=== PATIENT | female | born 1990 | race Asian ===

== ENCOUNTER → 2017-09-17 | Outpatient (CLI) | payer OTHER ==
--- NOTE | 2017-09-17 15:07 | MAMMOGRAPHY REPORT ---
ULTRASOUND OF RIGHT BREAST: 09/17/2017 CLINICAL HISTORY: 27-year-old woman presents with a 10 year history of feeling a lump in the lateral right breast, that she reported a prior physician told her it was a benign cyst and prescribed vitami n E. She presents with possible increased size and pain in the area of lump in the upper outer quadr ant of the right breast. COMPARISON: No prior exams were available for comparison. FINDINGS: The patient pointed out her area of lump in the 10:00 right breast, 9 cm from the nipple. On palpation, there is an ovoid 3 cm x 1 cm firm area versus ridge of tissue. On targeted ultrasound performed over this lump, there is sonographically normal dense glandular tissue, without evidence o f an underlying cyst or solid mass. No focal skin thickening or drainable fluid collection. IMPRESSION: ACR BI-RADS CATEGORY 2: BENIGN There is no sonographic evidence of malignancy, cyst or other suspicious abnormality in the area of l ump in the 10:00 right breast, pointed out by the patient. Therefore, continued clinical follow-up i s recommended, as biopsy of a clinically suspicious mass should not be precluded by negative imaging. These results and recommendations were discussed with the patient and her at the time of the exam. Sandy Severino M.D. ay/:09/17/2017 09:55:07 Sewing Machine Attachment Tester: Dr. Sandy Severino, [facility] letter sent: Normal 1/2 BI-RADS Code: ACR BI-RADS Category 2: Benign
== END | disposition home or self-care (01) ==
LOC: C.MAMM 08:44
PROVIDERS: ATTEND Physician Assistant Medical
DX: N63.11 Unspecified lump in the right breast, upper outer quadrant (principal)